=== PATIENT | male | born 2000 | race Caucasian/White ===

== ENCOUNTER 2020-08-26 19:00 | Emergency (ER) | payer OTHER ==
[2020-08-26 19:26] VITALS: BP 138/72; PULSE 97; TEMP 98.2; BMI 19.3
[2020-08-26] MEDS ORDERED: ACETAMINOPHEN 325 MG TABLET (FP) PO ONE (19:31)
[2020-08-26] MEDS ORDERED: ACETAMINOPHEN 325 MG TABLET (FP) ONE (19:35)
== END 2020-08-26 20:38 | disposition home or self-care (01) ==
LOC: FER 19:00
DX: M25.561 Pain in right knee (principal); M25.511 Pain in right shoulder
CPT/HCPCS: 73562-TC-RT-FY; 99284-25